=== PATIENT | female | born 1995 | race Caucasian/White ===

== ENCOUNTER 2018-07-16 05:00 | Emergency (ER) | payer SELFPAY, MEDICAID ==
[2018-07-16 08:28] LABS: ADD UMIC YES; UR ASCORBIC ACID NEGATIVE (NEGATIVE); UR BACTERIA FEW /HPF (NONE SEEN); UR BILIRUBIN (Dip) NEGATIVE (NEGATIVE); UR BLOOD (Dip) NEGATIVE (NEGATIVE); UR CLARITY SLIGHTLY CLOUDY (CLEAR); UR COLOR YELLOW (YELLOW); UR GLUCOSE (Dip) NEGATIVE (NEGATIVE); UR KETONES (Dip) NEGATIVE (NEGATIVE); UR LEUKOCYTE ESTERASE (Dip) 2+ Leu/ul (NEGATIVE); UR MUCUS FEW /HPF (NONE SEEN); UR NITRITE (Dip) NEGATIVE (NEGATIVE); UR RBC 2 /HPF (0-5); UR SPECIFIC GRAVITY (Dip) 1.014 (1.003-1.030); UR SQUAMOUS EPITHELIAL CELL MODERATE /HPF (FEW); UR TOTAL PROTEIN (Dip) NEGATIVE (NEGATIVE); UR UROBILINOGEN (Dip) NEGATIVE (NEGATIVE); UR WBC 4 /HPF (0-5)
[2018-07-16] MEDS: ONDANSETRON (ODT) 4 MG TAB ODT (08:38)
[2018-07-16] MEDS: AZITHROMYCIN 250 MG TAB PO (10:41)
[2018-07-16] MEDS: CEFTRIAXONE 250 MG INJ IM (10:41)
[2018-07-16 11:36] LABS: HIV 1&2 ANTIBODY NEGATIVE (NEGATIVE)
[2018-07-16 16:16] LABS: RAPID PLASMA REAGIN NONREACTIVE (NR)
== END 2018-07-16 11:22 | disposition home or self-care (01) ==
LOC: FTE 05:00
DX: N39.0 Urinary tract infection, site not specified (principal); N89.8 Other specified noninflammatory disorders of vagina
CPT/HCPCS: 81001; 81025; 84703; 86592; 86703; 87086; 87220; 87591; 96372; 99284-25